=== PATIENT | female | born 1980 | race Caucasian/White ===

== ENCOUNTER 2018-03-22 19:26 | Emergency (ER) | payer MEDICAID | END 2018-03-22 20:00 | disposition home or self-care (01) | LOC: E/R 20:00 | DX: T23.072A Burn of unspecified degree of left wrist, initial encounter (principal); X19.XXXA Contact with other heat and hot substances, initial encounter; Y92.9 Unspecified place or not applicable | CPT/HCPCS: 99283 ==

== ENCOUNTER 2018-09-11 00:02 | Emergency (ER) | payer MEDICAID ==
[2018-09-11 00:32] LABS: URINE PH (Dip) POC 5.5 (5.0-8.5)
[2018-09-11 00:32] LABS: URINE BLOOD (Dip) POC 1+ (NEGATIVE); URINE KETONES (Dip) POC Trace (NEGATIVE); URINE LEUKOCYTE EST (Dip) POC Negative (NEGATIVE); URINE NITRITE (Dip) POC Positive (NEGATIVE); URINE TOTAL PROTEIN POC 1+ (NEGATIVE)
== END 2018-09-11 02:15 | disposition home or self-care (01) ==
LOC: FTE 00:02
DX: N39.0 Urinary tract infection, site not specified (principal)
CPT/HCPCS: 72220; 81003; 81025; 99283-25